=== PATIENT | female | born 1980 | race African-American/Black ===

== ENCOUNTER 2017-02-03 08:49 | Emergency (ER) | payer OTHER ==
[~2017-02-03] VITALS: Ht 175.3 cm; Wt 103.0 kg
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
[2017-02-03 09:51] LABS: GLUCOSE,URINE NEGATIVE (NEG)
[2017-02-03 09:52] LABS: BILIRUBIN,URINE NEGATIVE (NEG); NITRITE,URINE NEGATIVE (NEG); PROTEIN,URINE NEGATIVE (NEG-TRACE); UROBILINOGEN,URINE 0.2 mg/dL (0.2 mg/dL)
[2017-02-03 10:00] LABS: BARBITURATES NEG (NEG); BENZODIAZEPINES NEG (NEG); CANNABINOIDS NEG (NEG); COCAINE NEG (NEG); METHADONE NEG (NEG); OPIATES NEG (NEG); PHENCYCLIDINE NEG (NEG)
[2017-02-03] MEDS ORDERED: ONDANSETRON PF 4 MG/2 ML VIAL. IV ONE (10:00)
[2017-02-03 10:02] LABS: CREATININE 0.8 mg/dL (0.6-1.0); GFR 98.8; POTASSIUM 3.9 mmol/L (3.5-5.1)
[2017-02-03 10:02] LABS: POTASSIUM ISTAT 3.9 mmol/L (3.5-5.0)
[2017-02-03 10:03] LABS: BASO % 0 % (0-3); EOS % 1 % (0-3); HEMATOCRIT 41.9 % (36.0-47.0); HEMOGLOBIN 13.9 g/dL (12.0-15.5); LYMPH # 1.9 x10^3/uL (1.0-4.8); LYMPH % 16 % (24-48); MEAN CORPUSCULAR HEMOGLOBIN 31 pg (25-35); MEAN CORPUSCULAR HGB CONC 33 g/dL (31-37); MEAN CORPUSCULAR VOLUME 93 fL (79-100); MONO % 5 % (0-9); NEUT % 78 % (31-73); PLATELET COUNT 202 x10^3/uL (140-400); RED CELL DISTRIBUTION WIDTH 13.3 % (11.5-14.5); WHITE BLOOD COUNT 11.7 x10^3/uL (4.0-11.0)
[2017-02-03 10:12] LABS: NEG OBC UR NEG; POS OBC UR POS
[2017-02-03 10:15] LABS: BACTERIA,URINE FEW /HPF (0-FEW); SQUAMOUS EPITHELIAL CELL,UR FEW /LPF
[2017-02-03 10:26] LABS: INR 0.9 (0.8-1.1)
[2017-02-03] MEDS ORDERED: IOHEXOL 300 MG/ML 100ML VIAL. IV ONE (10:30)
--- NOTE | 2017-02-03 10:54 | EKG ---
[facility] [address] [place] [address] Test Date: 2017-02-03 Test Time: 09:49:10 Pat Name: AMAURY TOURE Department: Room: Gender: F Correction Officer Supervisor: : [id number] Requested By: FARA RUSSELL Order Number: [id number] Reading MD: Measurements Intervals [place] Rate: 63 P: 0 AK: 116 QRS: 81 QRSD: 78 T: 62 QT: 406 QTc: 419 Interpretive Statements SINUS RHYTHM ST & T ABNORMALITY, CONSIDER RECENT INFERIOR MYOCARDIAL OR PERICARDIAL DAMAGE ABNORMAL ECG RI6.01 No previous ECG available for comparison
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
[2017-02-03] MEDS ORDERED: CYCLOBENZAPRINE 10 MG TABLET. PO ONE (11:15)
[2017-02-03] MEDS ORDERED: IBUPROFEN 600 MG TABLET. PO ONE (11:15)
[2017-02-03 12:00] VITALS: BP 110/60
[2017-02-03] MEDS ORDERED: CYCL10TA2 PO (12:23)
== END 2017-02-03 12:31 | disposition home or self-care (01) ==
LOC: ER 08:49
DX: S30.1XXA Contusion of abdominal wall, initial encounter (principal); S70.02XA Contusion of left hip, initial encounter; S80.02XA Contusion of left knee, initial encounter; M79.1 Myalgia; V43.52XA Car driver injured in collision with other type car in traffic accident, initial encounter; Y93.I9 Activity, other involving external motion; Y92.410 Unspecified street and highway as the place of occurrence of the external cause; Y99.8 Other external cause status
CPT/HCPCS: 36415; 70450; 71275; 72125; 74177; 80047; 80048; 80307; 81001; 81025; 83605; 84484; 85025; 85610; 85730; 86850; 86900; 86901; 93005; 96374; 99285; G0480; J2405; Q9967; G0479